=== PATIENT | female | born 1975 | race Caucasian/White ===

== ENCOUNTER 2024-01-23 22:21 | Emergency (ER) | payer OTHER ==
[~2024-01-23] VITALS: Ht 175.3 cm; Wt 58.2 kg
[2024-01-23 22:43] VITALS: TEMP 97.8
[2024-01-23] MEDS ORDERED: NS 1,000 ML IV ONE (23:00)
[2024-01-23 23:09] LABS: BASO # 0.1 K/mm3 (0.0-0.2); BASO % 0.5 % (0.0-2.0); EOS # 0.2 K/mm3 (0.0-0.7); EOS % 1.8 % (0.0-4.0); GRAN # 4.8 K/mm3 (1.4-6.5); GRAN % 46.7 % (42.2-75.2); HEMATOCRIT 46.2 % (37.0-47.0); HEMOGLOBIN 15.8 g/dl (12.5-16.0); LYMPH # 4.6 K/mm3 (1.2-3.4); MEAN CELL VOLUME 89 fl (80.0-100.0); MEAN CORPUSCULAR HEMOGLOBIN 30 pg (27-31); MEAN CORPUSCULAR HGB CONC 34 g/dl (33.0-37.0); MEAN PLATELET VOLUME 8.9 fl (7.4-10.4); MONO # 0.6 K/mm3 (0.1-0.6); MONO % 5.8 % (1.7-9.3); PLATELET COUNT 240 K/mm3 (130-400); RED BLOOD COUNT 5.19 M/mm3 (4.10-5.30); REDCELL DISTRIBUTION WIDTH-CV 12.7 % (11.5-14.5)
[2024-01-23] MEDS ORDERED: Meclizine 25 MG TAB PO ONE (23:15)
[2024-01-23 23:21] LABS: ALBUMIN 3.6 g/dL (3.5-5.0); BILIRUBIN,TOTAL 0.3 mg/dL (0.2-1.2); C-REACTIVE PROTEIN 0.6 mg/dL (0.00-0.50); CALCIUM 9.3 mg/dL (8.4-10.2); CREATININE, serum 0.82 mg/dL (0.57-1.11); POTASSIUM 3.4 mEq/L (3.5-4.5); TOTAL PROTEIN 7.2 g/dl (6.2-8.1)
[2024-01-24] MEDS ORDERED: Home Meclizine 12.5 MG #4 TABS/PACK PO ONE (00:15)
[2024-01-24] MEDS ORDERED: ANTIVERT 25MG25 MG PO (00:18)
[2024-01-24 00:35] VITALS: BP 129/66; PULSE 78
== END 2024-01-24 00:38 | disposition home or self-care (01) ==
LOC: COL.ER 22:21
PROVIDERS: Emergency Medicine
DX: R42 Dizziness and giddiness (principal); E87.6 Hypokalemia; F17.210 Nicotine dependence, cigarettes, uncomplicated; Z91.040 Latex allergy status
CPT/HCPCS: J0780; J7030